=== PATIENT | male | born 1945 | race Caucasian/White ===

== ENCOUNTER → 2019-05-21 09:26 | Outpatient (CLI) | payer MEDICARE, BC, SELFPAY ==
--- NOTE | 2019-05-21 09:34 | US_ITS ---
PROCEDURE: US ABDOMEN COMPLETE CLINICAL INDICATION: ELEVATED KIDNEY FUNCTION STUDIES Elevated liver enzymes and renal lab COMPARISON: ABD US ABD(COMPLETE-MULTI ORGANS from 07/22/2015 FINDINGS: PANCREAS: Unremarkable. No obvious mass or abnormal fluid collection. No ductal dilatation LIVER: Diffuse fatty changes of liver. Hepatic steatosis no focal lesions.. No intrahepatic biliary ductal dilatation evident Portal vein normal diameter 1.2 cm maximum normal direction flow Common bile duct 3.6 mm and hilum of the liver - normal caliber RIGHT KIDNEY: Diffuse cortical thinning. No hydronephrosis nor mass 9.65 cm in length LEFT KIDNEY: Diffuse cortical thinning no hydronephrosis nor mass 9.64 cm length GALLBLADDER: Gallbladder sludge and several polyps as were seen previously.. No discrete shadowing stones. No wall thickening wall thickening, pericholecystic fluid, or biliary dilatation. AORTA: No evidence of aneurysmal dilatation. It 1.75cm at level of the xiphoid and tapers as it continues distal SPLEEN: Unremarkable. Normal size and echogenicity ASCITES: None demonstrated. IMPRESSION: Diffuse fatty changes the liver.. No focal lesions evident Gallbladder with sludge and several polyps but no discrete shadowing stones. Common duct normal. All these above features are similar to previous 2015 exam Bilateral renal cortical thinning again seen, with perhaps slight progression since 2015. Dictated by: Armani Maki MD 05/21/2019 13:01 Signed by: <Electronically signed by Armani Maki MD in [facility]> 05/21/2019 13:01
== END ==
PROVIDERS: PCP Internal Medicine; Visit Provider Internal Medicine
DX: R94.5 Abnormal results of liver function studies (principal)
CPT/HCPCS: 76700

== ENCOUNTER → 2020-08-26 13:32 | Outpatient (CLI) | payer MEDICARE, BC, SELFPAY ==
--- NOTE | 2020-08-26 13:37 | US_ITS ---
PROCEDURE: US KIDNEY CLINICAL INDICATION: ABN RENAL FUNCTION COMPARISON: No exams were available for comparison FINDINGS: Right kidney is 11 x 5 x 6 cm. The left kidney is 11 x 5 x 4 cm. There is mild bilateral renal cortical thinning. No hydronephrosis. No renal mass or perinephric fluid. IMPRESSION: Bilateral renal cortical thinning, no hydronephrosis Dictated by: Naren Casiano MD 08/26/2020 15:25 Naren Casiano MD in [facility] 08/26/2020 15:25
[2020-08-26 14:12] LABS: Microscopic, Urine URINE MICROSCOPIC (MICROSCOPIC)
[2020-08-26 14:56] LABS: Basophils # 0.1 K/mm3 (0-0.2); Basophils % 0.5 % (0.1-2.0); Eosinophils # 0.1 K/mm3 (0.0-0.4); Eosinophils % 0.6 % (0.1-12.0); Hematocrit 42.6 % (42.0-52.0); Hemoglobin 13.7 g/dL (14.1-18.0); Lymphocytes # 1.5 K/mm3 (0.7-4.5); Lymphocytes % 12.1 % (10-50); Mean Corpuscular HGB Conc 32.3 g/dL (31.8-35.4); Mean Corpuscular Hemoglobin 28.3 pg (27.0-31.2); Mean Corpuscular Volume 87.8 fl (80-94); Mean Platelet Volume 7.3 fl (7.4-10.4); Monocytes # 0.6 K/mm3 (0.1-1.0); Monocytes % 4.9 % (1.7-9.3); Neutrophils # 9.9 K/mm3 (1.8-7.8); Neutrophils % 81.9 % (37.0-80.0); Platelet Count 384 K/mm3 (142-424); Red Blood Count 4.85 M/mm3 (4.60-6.20); Red Cell Distribution Width 13.5 % (11.5-17.5); White Blood Count 12.1 K/mm3 (4.8-10.8)
[2020-08-26 15:39] LABS: Appearance,Urine CLEAR (Clear); Bilirubin,Urine Negative (Negative); Blood, Urine Negative (Negative); Color,Urine YELLOW (Yellow); Glucose,Urine (UA) Negative (Negative); Ketones,Urine Negative (Negative); Leukocyte Esterase,Urine Negative (Negative); Nitrate,Urine Negative (Negative); Protein,Urine Negative (Negative); Specific Gravity, Urine 1.025 (1.005-1.030); Urobilinogen,Urine 0.2 EU/dl (0.2)
[2020-08-26 15:49] LABS: Creatinine,Urine Random 171 mg/dL (Not Estab.)
[2020-08-26 16:04] LABS: Amorphous Sediment,Urine Trace /lpf; RBC,Urine Occasional #/hpf (0-3); Squamous Epithelial Cell,Urine Occasional #/hpf (0-5)
[2020-08-26 16:26] LABS: Albumin Level 3.2 g/dl (3.5-5.0); Anion Gap 13.5 mEq/L (5-15); Blood Urea Nitrogen 17 mg/dl (9-20); Calcium 8.8 mg/dl (8.4-10.2); Carbon Dioxide 25 mmol/L (22.0-30.0); Chloride 102 mmol/L (98-107); Estimated Glomerular Filt Rate 65 ml/min (>60); GFR (African American) 79 ML/MIN (>60); Glucose 101 mg/dl (74-100); Potassium 4.5 mmoL/L (3.5-5.1); Sodium 136 mmol/L (136-145); Uric Acid 5.6 mg/dl (3.5-8.5)
== END ==
PROVIDERS: Nurse Practitioner; PCP Internal Medicine
DX: N28.9 Disorder of kidney and ureter, unspecified (principal)
CPT/HCPCS: 36415; 76770; 80069; 81001; 82570; 84155; 84550; 85025

== ENCOUNTER → 2020-10-10 12:43 | Outpatient (CLI) | payer MEDICARE, BC, SELFPAY ==
--- NOTE | 2020-10-10 12:52 | CT_ITS ---
PROCEDURE: CT ABDOMEN PELVIS WO CON CLINICAL INDICATION: ABNORMAL WEIGHT LOSS 35 lb weight loss last 6 months COMPARISON: No exams were available for comparison TECHNIQUE: Axial images obtained with sagittal and coronal reformats. All CT scans at the facility use one or more dose reduction, viz: automated exposure control, ma/kV adjustment per patient size (including targeted exams where dose is matched to indication, i.e. head), or iterative reconstruction technique. FINDINGS: LOWER THORAX: There is a small left-sided pleural effusion. There are mild atelectatic changes in left lung base. There is some minimal calcification noted within the mitral valve annular region. ABDOMEN & PELVIS: The liver, gallbladder, spleen, and adrenal glands have an unremarkable appearance. Unremarkable appearing pancreas. No renal or ureteral calculi. There is an exophytic hyperdensity projecting off posterior aspect of the left kidney and may be due to hyperdense cyst. There is some minimal stranding of the perinephric renal fat on the left. Unremarkable appendix. No intestinal obstruction or free air. The prostate is enlarged at 5.5 x 4.4 cm. There is mild thickening of the urinary bladder wall. There are degenerative changes of the lumbar spine and hips. There is mild degenerative changes of the SI joints with fusion anteriorly. IMPRESSION: 1. Small left-sided pleural effusion. 2. Hyperdensity projecting off the left kidney posteriorly may be due to a proteinaceous or hyperdense cyst. Ultrasound may confirm cystic or solid nature. 3. Enlarged prostate with mild thickening urinary bladder wall. Dictated by: Naren Casiano MD 10/11/2020 19:37 Naren Casiano MD in [facility] 10/11/2020 19:37
== END ==
PROVIDERS: PCP Internal Medicine; Visit Provider Internal Medicine
DX: R63.4 Abnormal weight loss (principal)
CPT/HCPCS: 74176

== ENCOUNTER → 2020-10-19 14:19 | Outpatient (CLI) | payer MEDICARE, BC, SELFPAY ==
--- NOTE | 2020-10-19 14:26 | CT_ITS ---
PROCEDURE: CT CHEST WO CON CLINICAL INDICATION: lt pleural effusion, weight loss, loss of appetite since April COMPARISON: CT CT ABDOMEN PELVIS WO CON from 10/10/2020 TECHNIQUE: Axial images obtained with sagittal and coronal reformats. All CT scans at the facility use one or more dose reduction, viz: automated exposure control, ma/kV adjustment per patient size (including targeted exams where dose is matched to indication, i.e. head), or iterative reconstruction technique. FINDINGS: HEART AND MEDIASTINAL STRUCTURES: No mediastinal or hilar mass or adenopathy. There is minimal nodularity along the lower pole of the thyroid gland on the left with punctate calcification. This area measures approximately 10 mm. Extensive coronary artery calcifications are present LUNGS AND PLEURAL SPACES: There is calcified granuloma in the right lower lobe posteriorly. There is minimal thickening of the right major fissure superiorly. There is a 3 mm nodule in the left apex consistent with a calcified granuloma. No areas of consolidation. There is a small left pleural effusion. This has decreased in size compared to 10/10/2020. BONY STRUCTURES: Degenerative changes thoracic spine UPPER ABDOMEN: In the left kidney superiorly there is an isodense nodule measuring 2 cm. In addition, there is a hyperdense nodule projecting posteriorly involving the left kidney at 8 mm and a small exophytic cyst medially at 6 mm. ADDITIONAL FINDINGS: No other significant abnormalities. IMPRESSION: 1. Trace left-sided pleural effusion which is slightly decreased in size compared to the previous exam. 2. There is a 2 cm nodule involving the left kidney superiorly and medially. This is isodense and blends imperceptibly with the remaining renal parenchyma. This was identified on an ultrasound of the same day. This was present on 10/10/2020 but not detected due to the Isodense nature with remaining kidney. The neoplasm is included in the differential diagnosis is specially in this patient with history of weight loss and small left effusion. Suggest dedicated CT of the kidneys without and with contrast and delayed images. Alternatively, MRI would also be of further value without and with gadolinium enhancement if the patient can remain still and is MRI compatible. Follow-up is strongly recommended.. Dictated by: Naren Casiano MD 10/20/2020 09:15 Naren Casiano MD in [place] 10/20/2020 09:15
--- NOTE | 2020-10-19 14:27 | US_ITS ---
PROCEDURE: US KIDNEY CLINICAL INDICATION: WEIGHT LOSS,LOSS OF APPETITE Possible left renal cyst COMPARISON: US ABD US ABD(COMPLETE-MULTI ORGANS from 07/22/2015 US US ABDOMEN COMPLETE from 05/21/2019 US US KIDNEY from 08/26/[address] ABDOMEN PELVIS WO CON from 10/10/[address] CHEST WO CON from 10/19/2020 FINDINGS: The right kidney is [id number]. No hydronephrosis, cortical thinning, or renal mass or perinephric fluid collection is evident. The left kidney is [id number]. No hydronephrosis, cortical thinning, or renal mass or perinephric fluid collection is evident.. Recent CT scan demonstrated small hyperdensity along the posterior aspect of the left kidney. This is not demonstrated likely related to technique and small size. There is however, an isoechoic area in the mid aspect of the upper pole of the left kidney suspicious for a renal mass.. This measures 1.8 cm. IMPRESSION: Suspicious 1.8 cm area of decreased echogenicity in the upper pole of the left kidney. This does not correspond to the hyperdensity noted on the CT scan but is an additional lesion which corresponds to an area of I so density on the CT scan which blends imperceptibly with the renal cortex. This is suspicious for renal mass. MRI of the kidneys without and with gadolinium enhancement or CT without and with contrast with renal protocol suggested for further evaluation. Dictated by: Naren Casiano MD 10/19/2020 15:13 Naren Casiano MD in [place] 10/19/2020 15:13
== END ==
PROVIDERS: PCP Internal Medicine; Visit Provider Internal Medicine
DX: J90 Pleural effusion, not elsewhere classified (principal); R63.4 Abnormal weight loss; R63.0 Anorexia; Z68.29 Body mass index [BMI] 29.0-29.9, adult
CPT/HCPCS: 71250; 76770

== ENCOUNTER 2024-03-09 16:29 | Emergency (ER) | payer MEDICARE, BC, SELFPAY ==
[2024-03-09 16:31] VITALS: BP 185/95; PULSE 75; RESP 18; TEMP 36.6; O2SAT 96; BMI 29.0
--- NOTE | 2024-03-09 16:31 | [facility].EDGENADL ---
Discharge Plan Disposition Patient Disposition: Home, Self-Care Condition: Good Prescriptions Prescriptions: New amoxicillin-pot clavulanate 875-125 mg tablet 1 tab PO BID Qty: 20 0RF No Action amlodipine 5 mg tablet 5 mg PO DAILY metoprolol tartrate 25 mg tablet 25 mg PO DAILY tamsulosin 0.4 mg capsule 0.4 mg PO DAILY lisinopril-hydrochlorothiazide 20-12.5 mg tablet 1 tab PO DAILY aspirin [Adult Aspirin Regimen] 81 mg tablet,delayed release (DR/EC) 81 mg PO DAILY Referrals Follow up/Referrals: Tony Singh MD [Primary Care Provider] - See instructions Activity Restrictions/Add. Instructions Additional Instructions/Restrictions: Please follow-up with dentistry soon as possible. Follow-up closely with your PCP. Return to ER for any worsening signs or symptoms. Clinical Impressions Clinical Impression: Cellulitis and abscess of face Instructions Patient Instructions: DI for Dental Pain Discharge ED Provider: Liu Bryan General Adult HPI <GUERA Addison - Last Filed: 03/09/24 18:34> General Chief complaint: PAIN Stated complaint: HBP,toothache Time Seen by Provider: 03/09/24 16:31 History of Present Illness HPI narrative: Patient presents for evaluation of jaw pain and elevated blood pressure. Patient presents for 24-hour history of increasing right lower jaw pain and elevated blood pressure today. Patient has significant dental caries and woke up with swelling and pain in his right lower jaw. Attempted to make an appointment with a dentist however none were available and was referred to the emergency department by one of the dentistry offices due to his blood pressure. Patient denies fever chest pain shortness of breath hemoptysis hematochezia melena nausea vomiting or diarrhea. Related Data Home Medications Medication Instructions Recorded Confirmed amlodipine 5 mg tablet 5 mg PO DAILY 10/21/20 10/21/20 aspirin 81 mg tablet,delayed 81 mg PO DAILY 10/21/20 10/21/20 release (Adult Aspirin Regimen) lisinopril 20 1 tab PO DAILY 10/21/20 10/21/20 mg-hydrochlorothiazide 12.5 mg tablet metoprolol tartrate 25 mg tablet 25 mg PO DAILY 10/21/20 10/21/20 tamsulosin 0.4 mg capsule 0.4 mg PO DAILY 10/21/20 10/21/20 Previous Rx's Medication Instructions Recorded amoxicillin 875 mg-potassium 1 tab PO BID #20 tabs 03/09/24 clavulanate 125 mg tablet Allergies Allergy/AdvReac Type Severity Reaction Status Date / Time No Known Allergies Allergy Verified 10/21/20 15:43 PFSH <GUERA Addison - Last Filed: 03/09/24 18:34> [facility] Disclaimer: The information contained in this section may have been updated after the patient was seen, as this information can be updated by other users. Social History Smoking Status: Never smoker alcohol intake: never substance use type: denies use current occupational status: retired Travel in the last 8 weeks: None household members: spouse housing: house <GUERA Addison - Last Filed: 03/09/24 18:34> ROS Obtained: Yes Systems reviewed as appropriate & no additional complaints except as documented Physical Exam <GUERA Addison - Last Filed: 03/09/24 18:34> General General appearance: alert and in no apparent distress Eye Eye exam: Present normal appearance, PERRL and EOMI ENT ENT exam: Present mucous membranes moist and other (Patient has palpable fullness in the buccal recess adjacent to the right lower premolars along with tenderness to palpation of same.); Absent normal exam (Patient has right lower mandible swelling and tenderness to palpation anteriorly. No lymphadenopathy noted.) or normal oropharynx (Patient has severe dental caries and all but 3 remaining teeth are involved. Patient has several missing teeth already. The area of interest is at the right lower premolar) Neck Neck exam: Present normal inspection and full ROM Respiratory Respiratory exam: Present normal lung sounds bilaterally Cardiovascular Cardiovascular exam: Present regular rate and normal rhythm Neurological Exam Neurological exam: Present alert and oriented X3 Medical Decision Making <GUERA Addison - Last Filed: 03/09/24 18:34> Medical Records Medical records reviewed: Yes I reviewed the patient's medical records. Tony Inquiry Pt receiving controlled substance: No Vital Signs: 03/09/24 16:31 03/09/24 16:45 03/09/24 18:30 Temperature 97.9 F Temperature Source Oral Pulse Rate 78 61 Pulse Rate [Left Radial] 75 Respiratory Rate 18 18 Blood Pressure 185/95 H 154/76 H Blood Pressure [Right Arm] 185/95 H Blood Pressure Mean 124 Blood Pressure Mean [Right Arm] 125 Blood Pressure Source Blood Pressure Position Supine 02 Sat by Pulse Oximetry 96 96 97 Oxygen Delivery Method Room Air Room Air 03/09/24 18:48 Temperature 97.9 F Temperature Source Oral Pulse Rate 61 Pulse Rate [Left Radial] Respiratory Rate 16 Blood Pressure 154/76 H Blood Pressure [Right Arm] Blood Pressure Mean Blood Pressure Mean [Right Arm] Blood Pressure Source Automatic Cuff Blood Pressure Position Sitting 02 Sat by Pulse Oximetry Oxygen Delivery Method Room Air Lab Data Lab results reviewed: Yes I reviewed the patient's lab results. Lab Results 03/09/24 16:59: WBC 8.9, RBC 4.54 L, Hgb 13.6 L, Hct 40.9 L, MCV 90.1, MCH 30.1, MCHC 33.4, RDW 14.4, Plt Count 282, MPV 7.9, Neut % (Auto) 68.8, Lymph % (Auto) 18.3, Isabela % (Auto) 6.9, Eos % (Auto) 5.7, Baso % (Auto) 0.3, Neut # (Auto) 6.1, Lymph # (Auto) 1.6, Isabela # (Auto) 0.6, Eos # (Auto) 0.5 H, Baso # (Auto) 0.0, Sodium 133 L, Potassium 4.5, Chloride 103, Carbon Dioxide 25, Anion Gap 9.5, BUN 22 H, Creatinine 1.10, Estimated Creat Clear 63, Estimated GFR 65, Est GFR ( Amer) 78, Glucose 92, Calcium 9.0 03/09/24 16:59 03/09/24 16:59 Orders (Tests/Meds): ED MEDICATIONS Discontinued Medications Generic Name Dose Route Start Last Admin Trade Name Tonya PRN Reason Stop Dose Admin Acetaminophen 1,000 mg 03/09/24 16:49 03/09/24 17:08 Acetaminophen 1,000mg/100ml Vial IV 03/09/24 16:50 1,000 mg ONCE ONE Administration Amoxicillin/Clavulanate Potassium 1 each 03/09/24 17:54 03/09/24 18:40 Amoxicillin/Clavulanate Potassium 875/125mg Tablet PO 03/09/24 17:55 1 each ONCE ONE Administration Iopamidol 75 ml 03/09/24 17:47 03/09/24 17:50 Iopamidol-370 (76%);100ml Bottle IV 03/09/24 17:48 75 ml ONCE ONE Administration Ketorolac Tromethamine 15 mg 03/09/24 16:49 03/09/24 17:08 Ketorolac 30mg/Ml Vial IV 03/09/24 16:50 15 mg ONCE ONE Administration Oxycodone HCl 5 mg 03/09/24 16:49 03/09/24 17:08 Oxycodone 5mg Immediate Release Tablet PO 03/09/24 16:50 5 mg ONCE ONE Administration Sodium Chloride 10 ml 03/09/24 17:47 03/09/24 17:50 Sodium Chloride 0.9% 10ml Syr (Rad Only) IV 04/08/24 17:46 10 ml NEEDED PRN Administration Maintain IV Site ORDERS Category Date Time Status CT facial bones w con Stat Cat Scan 03/09/24 16:49 Completed BMP [Basic Metabolic Panel] Stat Lab 03/09/24 16:59 Completed CBC w/Auto Diff [Complete Blood Count Auto Diff] Stat Lab 03/09/24 16:59 Completed Medical Decision Narrative: In summary patient is a 78-year-old male who presents to the emergency department for evaluation of dental pain and elevated blood pressure. Patient is hypertensive on arrival but otherwise with stable vital signs upon arrival, afebrile. Physical exam shows what appears to be facial cellulitis/abscess of the right anterior mandible along with significant dental caries and several missing teeth already. Differential diagnosis includes mandibular abscess versus osteomyelitis versus cellulitis versus uncontrolled hypertension versus elevated blood pressure secondary to pain. Initial workup will be conducted with hematologic labs CT scan of the face. Initial interventions include Tylenol Toradol oxycodone. Initial workup reviewed by me shows a normal white count and his hematologic labs otherwise unremarkable and my informal interpretation of his CT scan of the face shows the known dental caries however he may have a possible developing abscess that appears to be less than 2 cm in the affected area. Upon repeat evaluation patient has had moderate improvement in his pain and his blood pressure is normotensive now. Given this patient is appropriate for discharge with a prescription sent to his pharmacy for Augmentin and first dose given here. Patient needs to follow-up with dentistry to assure resolution. <Liu Bryan MD - Last Filed: 03/09/24 19:34> Vital Signs: 03/09/24 16:31 03/09/24 16:45 03/09/24 18:30 Temperature 97.9 F Temperature Source Oral Pulse Rate 78 61 Pulse Rate [Left Radial] 75 Respiratory Rate 18 18 Blood Pressure 185/95 H 154/76 H Blood Pressure [Right Arm] 185/95 H Blood Pressure Mean 124 Blood Pressure Mean [Right Arm] 125 Blood Pressure Source Blood Pressure Position Supine 02 Sat by Pulse Oximetry 96 96 97 Oxygen Delivery Method Room Air Room Air 03/09/24 18:48 Temperature 97.9 F Temperature Source Oral Pulse Rate 61 Pulse Rate [Left Radial] Respiratory Rate 16 Blood Pressure 154/76 H Blood Pressure [Right Arm] Blood Pressure Mean Blood Pressure Mean [Right Arm] Blood Pressure Source Automatic Cuff Blood Pressure Position Sitting 02 Sat by Pulse Oximetry Oxygen Delivery Method Room Air Lab Data Lab Results 03/09/24 16:59: WBC 8.9, RBC 4.54 L, Hgb 13.6 L, Hct 40.9 L, MCV 90.1, MCH 30.1, MCHC 33.4, RDW 14.4, Plt Count 282, MPV 7.9, Neut % (Auto) 68.8, Lymph % (Auto) 18.3, Isabela % (Auto) 6.9, Eos % (Auto) 5.7, Baso % (Auto) 0.3, Neut # (Auto) 6.1, Lymph # (Auto) 1.6, Isabela # (Auto) 0.6, Eos # (Auto) 0.5 H, Baso # (Auto) 0.0, Sodium 133 L, Potassium 4.5, Chloride 103, Carbon Dioxide 25, Anion Gap 9.5, BUN 22 H, Creatinine 1.10, Estimated Creat Clear 63, Estimated GFR 65, Est GFR ( Amer) 78, Glucose 92, Calcium 9.0 Orders (Tests/Meds): ED MEDICATIONS Discontinued Medications Generic Name Dose Route Start Last Admin Trade Name Freq PRN Reason Stop Dose Admin Acetaminophen 1,000 mg 03/09/24 16:49 03/09/24 17:08 Acetaminophen 1,000mg/100ml Vial IV 03/09/24 16:50 1,000 mg ONCE ONE Administration Amoxicillin/Clavulanate Potassium 1 each 03/09/24 17:54 03/09/24 18:40 Amoxicillin/Clavulanate Potassium 875/125mg Tablet PO 03/09/24 17:55 1 each ONCE ONE Administration Iopamidol 75 ml 03/09/24 17:47 03/09/24 17:50 Iopamidol-370 (76%);100ml Bottle IV 03/09/24 17:48 75 ml ONCE ONE Administration Ketorolac Tromethamine 15 mg 03/09/24 16:49 03/09/24 17:08 Ketorolac 30mg/Ml Vial IV 03/09/24 16:50 15 mg ONCE ONE Administration Oxycodone HCl 5 mg 03/09/24 16:49 03/09/24 17:08 Oxycodone 5mg Immediate Release Tablet PO 03/09/24 16:50 5 mg ONCE ONE Administration Sodium Chloride 10 ml 03/09/24 17:47 03/09/24 17:50 Sodium Chloride 0.9% 10ml Syr (Rad Only) IV 04/08/24 17:46 10 ml NEEDED PRN Administration Maintain IV Site ORDERS Category Date Time Status CT facial bones w con Stat Cat Scan 03/09/24 16:49 Completed BMP [Basic Metabolic Panel] Stat Lab 03/09/24 16:59 Completed CBC w/Auto Diff [Complete Blood Count Auto Diff] Stat Lab 03/09/24 16:59 Completed Medical Decision Narrative: In summary patient is a 78-year-old male who presents to the emergency department for evaluation of dental pain and elevated blood pressure. Patient is hypertensive on arrival but otherwise with stable vital signs upon arrival, afebrile. Physical exam shows what appears to be facial cellulitis/abscess of the right anterior mandible along with significant dental caries and several missing teeth already. Differential diagnosis includes mandibular abscess versus osteomyelitis versus cellulitis versus uncontrolled hypertension versus elevated blood pressure secondary to pain. Initial workup will be conducted with hematologic labs CT scan of the face. Initial interventions include Tylenol Toradol oxycodone. Initial workup reviewed by me shows a normal white count and his hematologic labs otherwise unremarkable and my informal interpretation of his CT scan of the face shows the known dental caries however he may have a possible developing abscess that appears to be less than 2 cm in the affected area. Upon repeat evaluation patient has had moderate improvement in his pain and his blood pressure is normotensive now. Given this patient is appropriate for discharge with a prescription sent to his pharmacy for Augmentin and first dose given here. Patient needs to follow-up with dentistry to assure resolution. I interviewed and examined patient. No palpable or discernible abscess that is amenable to drainage on physical exam. He does have right jaw swelling. No signs of oropharyngeal airway compromise. I was consulted by the MIRANDA, and we discussed the complexity of the problems being addressed. I approved the treatment and management plan for this patient?s care in the Emergency Department, thus performing a substantive portion of the medical decision making. Liu Bryan MD Critical Care <GUERA Addison - Last Filed: 03/09/24 18:34> Critical Care Time Critical Care Time: No
[2024-03-09 16:45] VITALS: BP 185/95; PULSE 78; O2SAT 96
--- NOTE | 2024-03-09 16:49 | CT_ITS ---
PROCEDURE INFORMATION: Exam: CT Maxillofacial With Contrast Exam date and time: 03/09/2024 5:44 PM Age: 78 years old Clinical indication: Jaw pain; Additional info: Dental caries, facial swelling TECHNIQUE: Imaging protocol: Computed tomography of the face with contrast. Radiation optimization: All CT scans at this facility use at least one of these dose optimization techniques: automated exposure control; mA and/or kV adjustment per patient size (includes targeted exams where dose is matched to clinical indication); or iterative reconstruction. Contrast material: ISOVUE; Contrast volume: 75 ml; Contrast route: IV; COMPARISON: No relevant prior studies available. FINDINGS: Orbital cavities: Orbits are normal. Globes are unremarkable. Paranasal sinuses: Normal. No air-fluid levels. Dental: Multiple dental caries with right mandibular 1st molar and 2nd premolar caries that extend to soft tissue swelling and heterogeneous enhancement that surround a subtle rim enhancing collection that measures 1.9 x 1.4 x 0.6 cm adjacent to the right mandibular body, and may represent developing abscess. Bones: No acute fracture. Soft tissues: Unremarkable. IMPRESSION: Multiple dental caries with right mandibular 1st molar and 2nd premolar caries that extend to soft tissue swelling and heterogeneous enhancement that surround a subtle rim enhancing collection that measures 1.9 x 1.4 x 0.6 cm adjacent to the right mandibular body, and may represent developing abscess.
[2024-03-09] MEDS: ACETAMINOPHEN 1,000MG/100ML VIAL 1000 MG IV (17:08)
[2024-03-09] MEDS: KETOROLAC 30MG/ML VIAL 15 MG IV (17:08)
[2024-03-09] MEDS: OXYCODONE 5MG IMMEDIATE RELEASE TABLET 5 MG PO (17:08)
[2024-03-09 17:09] LABS: Basophils % 0.3 % (0.1-2.0); Eosinophils # 0.5 K/mm3 (0.0-0.4); Eosinophils % 5.7 % (0.1-12.0); Hematocrit 40.9 % (42.0-52.0); Hemoglobin 13.6 g/dL (14.1-18.0); Lymphocytes # 1.6 K/mm3 (0.7-4.5); Lymphocytes % 18.3 % (10-50); Mean Corpuscular HGB Conc 33.4 g/dL (31.8-35.4); Mean Corpuscular Hemoglobin 30.1 pg (27.0-31.2); Mean Corpuscular Volume 90.1 fl (80-94); Mean Platelet Volume 7.9 fl (7.4-10.4); Monocytes # 0.6 K/mm3 (0.1-1.0); Monocytes % 6.9 % (1.7-9.3); Neutrophils # 6.1 K/mm3 (1.8-7.8); Neutrophils % 68.8 % (37.0-80.0); Platelet Count 282 K/mm3 (142-424); Red Blood Count 4.54 M/mm3 (4.60-6.20); Red Cell Distribution Width 14.4 % (11.5-17.5); White Blood Count 8.9 K/mm3 (4.8-10.8)
[2024-03-09 17:22] LABS: Chloride 103 mmol/L (98-107); Potassium 4.5 mmoL/L (3.5-5.1); Sodium 133 mmol/L (136-145)
[2024-03-09 17:25] LABS: Anion Gap 9.5 mEq/L (5-15); Blood Urea Nitrogen 22 mg/dl (9-20); Carbon Dioxide 25 mmol/L (22.0-30.0); Creatinine Clearance Estimated 63 mL/min (50-200); Estimated Glomerular Filt Rate 65 ml/min (>60); GFR (African American) 78 ML/MIN (>60); Glucose 92 mg/dl (74-100)
[2024-03-09] MEDS: IOPAMIDOL-370 (76%);100ML BOTTLE 75 ML IV (17:50)
[2024-03-09] MEDS: SODIUM CHLORIDE 0.9% 10ML SYR (RAD ONLY) 10 ML IV (17:50)
[2024-03-09 18:30] VITALS: BP 154/76; PULSE 61; RESP 18; O2SAT 97
[2024-03-09] MEDS: AMOXICILLIN/CLAVULANATE POTASSIUM 875/125MG TABLET 1 EACH PO (18:40)
[2024-03-09 18:48] VITALS: BP 154/76; PULSE 61; RESP 16; TEMP 36.6; O2SAT 97
== END 2024-03-09 18:50 | disposition home or self-care (01) ==
PROVIDERS: Physician Assistant; Emergency Provider Emergency Medicine; PCP Internal Medicine
DX: L02.01 Cutaneous abscess of face (principal); L03.211 Cellulitis of face; R68.84 Jaw pain; I10 Essential (primary) hypertension
CPT/HCPCS: 70487; 80048; 85025; 96374; 96375; 99284; J0131; Q9967